=== PATIENT | male | born 1985 | race Caucasian/White ===

== ENCOUNTER 2017-12-05 16:16 | Emergency (ER) | payer OTHER ==
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
[2017-12-05 16:27] VITALS: BP 131/41; PULSE 77; BMI 24.0
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
[2017-12-05] MEDS ORDERED: ACETAMINOPHEN 500 MG TABLET (FP) PO ONE (17:26)
[2017-12-05] MEDS ORDERED: ACETAMINOPHEN 500 MG TABLET (FP) ONE (17:28)
[2017-12-05 19:48] VITALS: TEMP 98.9
== END 2017-12-05 19:51 | disposition home or self-care (01) ==
LOC: JERFT 16:16
DX: G44.319 Acute post-traumatic headache, not intractable (principal); V43.52XA Car driver injured in collision with other type car in traffic accident, initial encounter; Y92.488 Other paved roadways as the place of occurrence of the external cause; Y93.89 Activity, other specified; Y99.8 Other external cause status
CPT/HCPCS: 70450-TC; 99281-25

== ENCOUNTER 2018-02-14 04:01 | Emergency (ER) | payer OTHER ==
[2018-02-14 04:29] VITALS: BP 115/64; PULSE 74; TEMP 97.9; BMI 25.9
--- NOTE | 2018-02-14 05:01 | PDOC ---
History of Present Illness - General Chief Complaint: Back Pain Stated Complaint: MUSCLE SPASMS Time Seen by Provider: 02/14/18 04:33 History Source: Patient Exam Limitations: No Limitations - History of Present Illness Initial Comments: This is a 32 YOM with unremarkable PMH who p/w diffuse back pain and muscle spasms from the bottom of his neck to the backs of his calves. He notes that this was present when he awakened from a nap about 7 hours ago and has been a constant 8/10 spasm-like pain since that time. He has not taken any medications for the pain. He recalls one prior episode of similar pain for which he was seen here at [facility] about 4 years ago and was given a shot of pain medication with significant relief, but a cause for the pain was never determined. He denies any headache, vision change, chest pain, SOB, abdominal pain, nausea, vomiting, diarrhea, constipation, numbness, tingling, weakness, urinary or bowel incontinence or retention, saddle anesthesia, difficulty balancing, or other symptoms. The patient believes that he is feeling this way because he ate two honey snacks which are aphrodisiacs and he is only supposed to eat one per day. Past History - Past Medical History Allergies/Adverse Reactions: Allergies Allergy/AdvReac Type Severity Reaction Status Date / Time Iodinated Contrast- Oral and Allergy Mild Itching Verified 02/15/18 03:02 IV Dye CONTRAST Allergy Mild Itching Uncoded 02/15/18 03:02 Home Medications: Ambulatory Orders Methocarbamol [Robaxin -] 500 mg PO TID #21 tablet 02/14/18 COPD: No - Immunization History Immunization Up to Date: Yes - Suicide/Smoking/Psychosocial Hx Smoking Status: Yes Smoking History: Current every day smoker Have you smoked in the past 12 months: Yes Number of Cigarettes Smoked Daily: 10 Information on smoking cessation initiated: No 'Breaking Loose' booklet given: 08/19/17 Hx Alcohol Use: Yes Drug/Substance Use Hx: Yes Substance Use Type: None Review of Systems - Review of Systems Able to Perform ROS?: Yes Constitutional: No: Chills, Fever, Unexplained wgt Loss HEENTM: No: Nose Congestion, Throat Pain Respiratory: No: Cough, Shortness of Breath Cardiac (ROS): No: Chest Pain, Palpitations ABD/GI: No: Constipated, Diarrhea, Nausea, Vomiting : No: Burning, Dysuria Musculoskeletal: Yes: Back Pain (diffuse spasms and pain), Neck Pain (diffuse spasms and pain) Integumentary: No: Bruising, Rash Neurological: No: Headache, Numbness, Tingling, Weakness, Dizziness Endocrine: No: Unexplained Weight Gain, Unexplained Weight Loss *Physical Exam - Vital Signs Last Vital Signs Temp Pulse Resp BP Pulse Ox 97.9 F 74 18 115/64 100 02/14/18 04:26 02/14/18 04:26 02/14/18 04:26 02/14/18 04:02/14/18 04:26 - Physical Exam General Appearance: Yes: Nourished, Appropriately Dressed, Other (nontoxic and well appearing adult male who is answering questions appropriately, accompanied by significant other at bedside). No: Apparent Distress HEENT: positive: EOMI, YANET, Normal Voice, Hearing Grossly Normal. negative: Scleral Icterus (R), Scleral Icterus (L), Nasal Congestion Neck: positive: Tender (minimal tenderness to paraspinous muscles to posterior inferior neck, no midline ttp or stepoff or deformity), Trachea midline, Supple. negative: Rigid Respiratory/Chest: positive: Lungs Clear, Normal Breath Sounds. negative: Respiratory Distress, Crackles, Rhonchi, Stridor, Wheezing Cardiovascular: positive: Regular Rhythm, Regular Rate, S1, S2. negative: Edema , JVD, Murmur Gastrointestinal/Abdominal: positive: Normal Bowel Sounds, Soft. negative: Tender, Organomegaly, Pulsatile Mass, Guarding Musculoskeletal: positive: Normal Inspection, Muscle Spasm, Other (no midline ttp or stepoff or deformity). negative: Decreased Range of Motion, Vertebral Tenderness Extremity: positive: Normal Capillary Refill, Normal Inspection, Normal Range of Motion. negative: Tender, Cyanosis Integumentary: positive: Normal Color, Dry, Warm. negative: Erythema, Rash, Bruising Neurologic: positive: equipment planner II-XII NML intact, Fully Oriented, Alert, Normal Mood/ Affect, Normal Response, Motor Strength 5/5, Finger to Nose (normal), Other ( normal gait, no ataxia). negative: Facial Droop, Numbness, Sensory Deficit, Confused, Disoriented ED Treatment Course - LABORATORY CBC & Chemistry Diagram: 02/14/18 05:00 02/14/18 05:00 Medical Decision Making - Medical Decision Making 32 YOM patient p/w diffuse neck, back, and leg pain. No new red flag symptoms (see HPI). Initial Vital Signs Temp Pulse Resp BP Pulse Ox 97.9 F 74 18 115/64 100 02/14/18 04:26 02/14/18 04:26 02/14/18 04:26 02/14/18 04:26 02/14/18 04:26 Exam: diffuse mild tenderness to palpation along medial trapezius and latissimus dorsi from inferior posterior neck to sacrum, normal neuro exam, able to ambulate unassisted without distress. DDX IBNLT: muscle spasm, DDD, DJD, osteophyte, compression fxr, other vertebral or spinous process fxr; much LL malignancy, spinal epidural abscess, epidural hematoma, meningitis, or other more concerning etiology. W/U ordered: CBCD CMP Mg Phos CPK TX ordered: NS bolus; Toradol Robaxin to be given after labs. Reassessment: Patient with pain much improved after Toradol and Robaxin, repeat exam benign. The patient has gotten significant relief of symptoms with ED medications. They are appropriate for discharge with close outpatient follow up. The patient is comfortable with this plan and will follow up with their PCP in 1 -3 days. They are counseled on importance of proactive pain management. E-Rx for Robaxin sent to patient's pharmacy. Return precautions are discussed and they will come back to the ER if necessary. *DC/Admit/Observation/Transfer Diagnosis at time of Disposition: Muscle spasm Back pain Qualifiers: Back pain location: back pain in unspecified location Chronicity: unspecified Back pain laterality: bilateral Qualified Code(s): M54.9 - Dorsalgia, unspecified - Discharge Dispostion Disposition: HOME Condition at time of disposition: Stable Decision to Admit order: No - Prescriptions Prescriptions: Methocarbamol [Robaxin -] 500 mg PO TID #21 tablet - Referrals - Patient Instructions Additional Instructions: You were seen in the ER for neck and back pain. We checked laboratories on your blood and these were normal. We gave you IV Toradol and a dose of Robaxin muscle relaxer which helped with your pain. Please follow up with your regular PCP doctor in 1-3 days. Call their clinic as soon as possible, tell them you were seen in the ER for back pain, and tell them you need an appointment. superintendent schools your prescription for Robaxin at your pharmacy and take this if you need it according to the instructions of the bottle. If you have any new or worsening symptoms please come back to the ER at any time (24 hours a day), especially for fever, new numbness new tingling new weakness, new urinary or bowel incontinence or retention, or other new symptoms. If you are having severe or life threatening symptoms, or symptoms that make it unsafe to drive or have someone drive you, please call 911. - Post Discharge Activity
[2018-02-14] MEDS ORDERED: SODIUM CHLORIDE 0.9% 500 ML INFUS.BAG IV ONE (05:03)
[2018-02-14 05:27] LABS: BASO % 0.3 % (0-2.0); EOS % 1.5 % (0-4.5); HEMOGLOBIN 14.9 GM/dL (11.7-16.9); LYMPH % 29.8 % (8-40); MCH 32.9 pg (25.7-33.7); MCHC 34.6 g/dl (32.0-35.9); MEAN CELL VOLUME 95.1 fl (80-96); MONO % 9.4 % (3.8-10.2); PLATELET COUNT 226 K/MM3 (134-434); RBC 4.53 M/mm3 (4.00-5.60); RDW 13.2 % (11.9-15.9); WHITE BLOOD COUNT 6.3 K/mm3 (4.0-10.0)
[2018-02-14 05:49] LABS: ALBUMIN 3.8 g/dl (3.4-5.0); ALK PHOS 70 U/L (45-117); ANION GAP 4 (8-16); BILIRUBIN,TOTAL 0.3 mg/dL (0.2-1.0); BLOOD UREA NITROGEN 15 mg/dL (7-18); CALCIUM 8.8 mg/dL (8.5-10.1); CHLORIDE 110 mmol/L (98-107); CO2 27 mmol/L (21-32); CREATININE 0.7 mg/dL (0.7-1.3); GLUCOSE,RANDOM 98 mg/dL (74-106); MAGNESIUM 2.2 mg/dL (1.8-2.4); PHOSPHOROUS 3.9 mg/dL (2.5-4.9); POTASSIUM 4.1 mmol/L (3.5-5.1); SGOT/AST 17 U/L (15-37); SGPT/ALT 26 U/L (12-78); SODIUM 141 mmol/L (136-145); TOT PROT 6.4 g/dl (6.4-8.2)
--- NOTE | 2018-02-14 06:07 | PDOC ---
Attending Attestation - Resident Resident Name: Ana Escalera - ED Attending Attestation I have performed the following: I have examined & evaluated the patient, The case was reviewed & discussed with the resident, I agree w/resident's findings & plan, Exceptions are as noted <Goran Kohler - Last Filed: 02/14/18 06:07> - HPI HPI: 02/14/18 06:11 The patient is a 32 year old male with no significant past medical history who presents with diffuse back pain and muscle spasms for 7 hours. The patient reports that his symptoms began after he woke up from a nap yesterday. He describes is pain as constant and 8/10 in severity. He did not try to treat his symptoms at home. He denies any additional symptoms at this time. - Physicial Exam PE: 02/14/18 06:11 GENERAL: Well-appearing, well-nourished. No apparent distress. HEENT: Normocephalic, atraumatic. PERRL, EOM intact. CARDIOVASCULAR: Normal S1, S2. Regular rate and rhythm. PULMONARY: Clear to auscultation bilaterally. ABDOMEN: Soft, non-distended, non-tender. EXTREMITIES: Normal ROM in all four extremities. No gross deformities. SKIN: Warm, dry. No rash NEUROLOGICAL: No focal neurological deficits. - Medical Decision Making 02/14/18 06:11 Documentation prepared by Phi Foy, acting as medical record clerk for Goran Kohler DO. <Phi Foy - Last Filed: 02/14/18 06:11>
[2018-02-14] MEDS ORDERED: METHOCARBAMOL 500 MG TABLET PO ONE (06:09)
[2018-02-14] MEDS ORDERED: KETOROLAC TROMETHAMINE 30 MG/1 ML VIAL IVPUSH ONE (06:09)
[2018-02-14] MEDS ORDERED: METHOCARBAMOL 500 MG TABLET ONE (06:11)
[2018-02-14] MEDS ORDERED: KETOROLAC TROMETHAMINE 30 MG/1 ML VIAL ONE (06:11)
== END 2018-02-14 06:28 | disposition home or self-care (01) ==
LOC: JER 04:01
PROC: 3E0333Z Introduction of Anti-inflammatory into Peripheral Vein, Percutaneous Approach (ICD-10-PCS; principal; 2018-02-14)
PROC: 3E0337Z Introduction of Electrolytic and Water Balance Substance into Peripheral Vein, Percutaneous Approach (ICD-10-PCS; 2018-02-14)
DX: M54.9 Dorsalgia, unspecified (principal); M62.830 Muscle spasm of back; F17.210 Nicotine dependence, cigarettes, uncomplicated
CPT/HCPCS: 36415; 80053; 82550; 83735; 84100; 85025; 99283-25

== ENCOUNTER 2018-02-15 02:36 | Emergency (ER) | payer OTHER ==
[2018-02-15 03:03] VITALS: BP 130/73; PULSE 78; TEMP 98.7; BMI 25.0
--- NOTE | 2018-02-15 03:05 | PDOC ---
History of Present Illness - General Chief Complaint: Pain Stated Complaint: MUSCLE SPASMS Time Seen by Provider: 02/15/18 03:05 Past History - Past Medical History Allergies/Adverse Reactions: Allergies Allergy/AdvReac Type Severity Reaction Status Date / Time Iodinated Contrast- Oral and Allergy Mild Itching Verified 02/15/18 03:02 IV Dye CONTRAST Allergy Mild Itching Uncoded 02/15/18 03:02 Home Medications: Ambulatory Orders Methocarbamol [Robaxin -] 500 mg PO TID #21 tablet 02/14/18 COPD: No - Immunization History Immunization Up to Date: Yes - Suicide/Smoking/Psychosocial Hx Smoking Status: Yes Smoking History: Never smoked Have you smoked in the past 12 months: No Number of Cigarettes Smoked Daily: 10 Information on smoking cessation initiated: No 'Breaking Loose' booklet given: 08/19/17 Hx Alcohol Use: No Drug/Substance Use Hx: No Substance Use Type: None *Physical Exam - Vital Signs Last Vital Signs Temp Pulse Resp BP Pulse Ox 98.7 F 78 20 130/73 100 02/15/18 03:02 02/15/18 03:02 02/15/18 03:02 02/15/18 03:02 02/15/18 03:02 *DC/Admit/Observation/Transfer - Referrals Referrals: Bob Rosales MD [Primary Care Provider] - - Patient Instructions - Post Discharge Activity
--- NOTE | 2018-02-15 03:12 | PDOC ---
History of Present Illness - General Chief Complaint: Pain Stated Complaint: MUSCLE SPASMS Time Seen by Provider: 02/15/18 03:05 History Source: Patient Exam Limitations: No Limitations - History of Present Illness Initial Comments: This is a 32 YOM with h/o occasional back pain/spasms who returns to the ED with diffuse back pain and muscle spasms from the bottom of his neck to the back of his calves. He was seen here in the ED last night for the same symptoms , had laboratory work done (specifically CPK and basic labs) to rule out possibility of more serious causes, and these were normal. He was then given fluids and IV Toradol with significant relief, and was discharged home with E- Rx sent for Robaxin TID. He took the Robaxin three times during the day, and also took an Epsom salt bath, but his pain slowly returned and it became severe enough to being him back to the ED tonight. He otherwise has had no new symptoms. He has a primary care provider with whom he can follow up with tomorrow (states they take walk-ins). Past History - Past Medical History Allergies/Adverse Reactions: Allergies Allergy/AdvReac Type Severity Reaction Status Date / Time Iodinated Contrast- Oral and Allergy Mild Itching Verified 02/15/18 03:02 IV Dye CONTRAST Allergy Mild Itching Uncoded 02/15/18 03:02 Home Medications: Ambulatory Orders Methocarbamol [Robaxin -] 500 mg PO TID #21 tablet 02/14/18 COPD: No - Immunization History Immunization Up to Date: Yes - Suicide/Smoking/Psychosocial Hx Smoking Status: Yes Smoking History: Never smoked Have you smoked in the past 12 months: No Number of Cigarettes Smoked Daily: 10 Information on smoking cessation initiated: No 'Breaking Loose' booklet given: 08/19/17 Hx Alcohol Use: No Drug/Substance Use Hx: No Substance Use Type: None Review of Systems - Review of Systems Able to Perform ROS?: Yes Constitutional: No: Chills, Fever, Unexplained wgt Loss HEENTM: No: Nose Congestion, Throat Pain Respiratory: No: Cough, Shortness of Breath Cardiac (ROS): No: Chest Pain, Palpitations ABD/GI: No: Constipated, Diarrhea, Nausea, Vomiting : No: Burning, Dysuria Musculoskeletal: Yes: Back Pain, Neck Pain, Other (calf pain) Integumentary: No: Bruising, Rash Neurological: No: Headache, Numbness, Tingling, Weakness, Dizziness Endocrine: No: Unexplained Weight Gain, Unexplained Weight Loss *Physical Exam - Vital Signs Last Vital Signs Temp Pulse Resp BP Pulse Ox 98.7 F 78 20 130/73 100 02/15/18 03:02 02/15/18 03:02 02/15/18 03:02 02/15/18 03:02 02/15/18 03:02 - Physical Exam General Appearance: Yes: Nourished, Appropriately Dressed, Mild Distress, Other (alert and oriented adult male, appears mildly uncomfortable, answering questions appropriately, full ROM). No: Apparent Distress HEENT: positive: EOMI, Normal Voice, Hearing Grossly Normal. negative: Scleral Icterus (R), Scleral Icterus (L), Nasal Congestion Neck: positive: Trachea midline, Supple, Tender lateral (with mild spasm). negative: Tender, Rigid, Tender midline Respiratory/Chest: positive: Lungs Clear, Normal Breath Sounds. negative: Respiratory Distress, Crackles, Rhonchi, Stridor, Wheezing Cardiovascular: positive: Regular Rhythm, Regular Rate. negative: Murmur Gastrointestinal/Abdominal: positive: Normal Bowel Sounds, Flat, Soft. negative : Tender, Organomegaly, Pulsatile Mass, Guarding Musculoskeletal: positive: Normal Inspection, Other (mild bilateral paraspinous tenderness with mild muscle spasm). negative: Decreased Range of Motion, Vertebral Tenderness Extremity: positive: Normal Capillary Refill, Normal Inspection, Normal Range of Motion. negative: Tender, Cyanosis Integumentary: positive: Normal Color, Dry, Warm. negative: Erythema, Rash, Bruising Neurologic: positive: hand scudder II-XII NML intact (grossly), Fully Oriented, Alert, Normal Mood/Affect, Normal Response, Motor Strength 5/5. negative: Facial Droop , Numbness, Sensory Deficit, Confused, Disoriented Medical Decision Making - Medical Decision Making Patient with h/o with recurrent back pain p/w acute exacerbation of same recurrent back pain with muscle spasms. Initial Vital Signs Temp Pulse Resp BP Pulse Ox 98.7 F 78 20 130/73 100 02/15/18 03:02 02/15/18 03:02 02/15/18 03:02 02/15/18 03:02 02/15/18 03:02 Exam: Appears a bit uncomfortable, diffuse mild paraspinous back pain with muscle spasms DDX IBNLT: DDD, DJD, osteophyte, compression fxr, other vertebral or spinous process fxr; much LL malignancy, spinal epidural abscess, epidural hematoma, meningitis, or other more concerning etiology. W/U ordered: None TX ordered: 60 mg IM Toradol Reassessment: States pain much improved, examination is benign. The patient has gotten significant relief of symptoms with ED medications. They are appropriate for discharge with close outpatient follow up. The patient is comfortable with this plan and will follow up with their PCP tomorrow at their walk-in clinic. He states that he will follow up tomorrow whether or not he feels better in the morning. Return precautions are discussed and they will come back to the ER if necessary. *DC/Admit/Observation/Transfer Diagnosis at time of Disposition: Muscle spasm Back pain Qualifiers: Back pain location: back pain in unspecified location Chronicity: unspecified Back pain laterality: bilateral Qualified Code(s): M54.9 - Dorsalgia, unspecified - Discharge Dispostion Disposition: HOME Condition at time of disposition: Stable Admit: No - Referrals Referrals: Bob Rosales MD [Primary Care Provider] - - Patient Instructions Additional Instructions: You were seen in the ER for back pain. We gave you an injection of Toradol which helped with your pain. Please follow up with your regular PCP doctor tomorrow at their walk-in clinic, whether or not you feel better in the morning. Continue taking the Robaxin as prescribed, and also try Motrin and Tylenol if you need additional pain control. If you have any new or worsening symptoms please come back to the ER at any time (24 hours a day), especially for fever, new numbness new tingling new weakness, new urinary or bowel incontinence or retention, or other new symptoms. If you are having severe or life threatening symptoms, or symptoms that make it unsafe to drive or have someone drive you, please call 911. - Post Discharge Activity
[2018-02-15] MEDS ORDERED: KETOROLAC TROMETHAMINE 60 MG/2 ML VIAL IM ONE (03:14)
--- NOTE | 2018-02-15 03:14 | PDOC ---
Attending Attestation - HPI HPI: 02/15/18 03:26 The patient is a 32 year old male with no significant PMH who presents to the ED with worsening diffuse back pain and muscle spasms beginning approximately yesterday. He describes his back pain as a constant, diffuse, spasm-like sensation, 8/10 in severity. The patient states he was seen here yesterday and discharged after Robaxin prescription. He returns today after taking the medication 3 times and epsom salt with minimal relief, as well as missing his walk-in for PCP follow up. The patient denies taking Tylenol or Motrin. Allergies: Iodinated contrast, Oral & IV. PCP: Dr. Bob Rosales <Rip Arreaga - Last Filed: 02/15/18 03:26> - Resident Resident Name: Ana Escalera - Physicial Exam PE: 02/15/18 04:09 *Physical Exam General Appearance: Yes: Appropriately Dressed. No: Apparent Distress, Intoxicated HEENT: positive: EOMI, YANET, Normal ENT Inspection, Normal Voice, TMs Normal, Pharynx Normal. negative: Pale Conjunctivae, Photophobia, Scleral Icterus (R), Scleral Icterus (L) Neck: positive: Trachea midline, Normal Thyroid, Supple. negative: Tender, Rigid, Carotid bruit, Stridor, Lymphadenopathy (R), Lymphadenopathy (L), Thyromegaly Respiratory/Chest: positive: Lungs Clear, Normal Breath Sounds. negative: Chest Tender, Respiratory Distress, Accessory Muscle Use, Labored Respiration, RES, Crackles, Rales, Rhonchi, Stridor, Wheezing, Dullness Cardiovascular: positive: Regular Rhythm, Regular Rate, S1, S2. negative: Edema , JVD, Murmur, Bradycardia, Tachycardia Vascular Pulses: Dorsalis-Pedis (R): 2+, Doralis-Pedis (L): 2+ Gastrointestinal/Abdominal: positive: Normal Bowel Sounds, Flat, Soft. negative : Tender, Organomegaly, Pulsatile Mass, Increased Bowel Sounds, Decreased BS, Distended, Guarding, Rebound, Hernia, Hepatomegaly, Spleenomegaly Lymphatic: negative: Adenopathy, Tenderness Musculoskeletal: positive: Normal Inspection. negative: CVA Tenderness, Decreased Range of Motion Extremity: positive: Normal Capillary Refill, Normal Inspection, Normal Range of Motion, Pelvis Stable. negative: Tender, Pedal Edema, Swelling, Erythema Integumentary: positive: Normal Color, Dry, Warm. 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 negative: EOM Palsy, Facial Droop, Sensory Deficit - Medical Decision Making 02/15/18 04:09 Pt treated and released <Goran Kohler - Last Filed: 02/15/18 04:09>
[2018-02-15] MEDS ORDERED: KETOROLAC TROMETHAMINE 60 MG/2 ML VIAL ONE (03:23)
== END 2018-02-15 04:10 | disposition home or self-care (01) ==
LOC: JER 02:36
PROC: 3E0233Z Introduction of Anti-inflammatory into Muscle, Percutaneous Approach (ICD-10-PCS; principal; 2018-02-15)
DX: M54.9 Dorsalgia, unspecified (principal); M62.830 Muscle spasm of back; Z87.891 Personal history of nicotine dependence
CPT/HCPCS: 96372; 99281-25

== ENCOUNTER 2018-05-13 22:48 | Emergency (ER) | payer OTHER ==
[2018-05-13 23:11] VITALS: BP 129/64; PULSE 88; TEMP 99.9; BMI 25.8
[2018-05-14] MEDS ORDERED: ACETAMINOPHEN 500 MG TABLET (FP) PO ONE (01:03)
--- NOTE | 2018-05-14 01:05 | PDOC ---
Attending Attestation - HPI HPI: 05/14/18 01:44 The patient is a 32 year old male with no significant medical history presents to the emergency department with fever. The patient presents with subjective fever accompanied with malaise, cough and body ache. Denies sick contact. Denies nausea and vomiting. Allergies: contrast and Iodinated contrast. Social history: None reported. Surgical history: None reported PCP: Bob Rosales MD <Monica Melendez - Last Filed: 05/14/18 01:44> - Resident Resident Name: PuraAndrew - ED Attending Attestation I have performed the following: I have examined & evaluated the patient, The case was reviewed & discussed with the resident, I agree w/resident's findings & plan, Exceptions are as noted - HPI HPI: 05/14/18 01:03 Pt c/o subjective fever, malaise and body aches. pt denies sick contacts - Physicial Exam PE: 05/14/18 01:03 *Physical Exam General Appearance: Yes: Appropriately Dressed. No: Apparent Distress, Intoxicated HEENT: positive: EOMI, YANET, Normal ENT Inspection, Normal Voice, TMs Normal, Pharynx Normal. negative: Pale Conjunctivae, Photophobia, Scleral Icterus (R), Scleral Icterus (L) Neck: positive: Trachea midline, Normal Thyroid, Supple. negative: Tender, Rigid, Carotid bruit, Stridor, Lymphadenopathy (R), Lymphadenopathy (L), Thyromegaly Respiratory/Chest: positive: Lungs Clear, Normal Breath Sounds. negative: Chest Tender, Respiratory Distress, Accessory Muscle Use, Labored Respiration, RES, Crackles, Rales, Rhonchi, Stridor, Wheezing, Dullness Cardiovascular: positive: Regular Rhythm, Regular Rate, S1, S2. negative: Edema , JVD, Murmur, Bradycardia, Tachycardia Vascular Pulses: Dorsalis-Pedis (R): 2+, Doralis-Pedis (L): 2+ Gastrointestinal/Abdominal: positive: Normal Bowel Sounds, Flat, Soft. negative : Tender, Organomegaly, Pulsatile Mass, Increased Bowel Sounds, Decreased BS, Distended, Guarding, Rebound, Hernia, Hepatomegaly, Spleenomegaly Lymphatic: negative: Adenopathy, Tenderness Musculoskeletal: positive: Normal Inspection. negative: CVA Tenderness, Decreased Range of Motion Extremity: positive: Normal Capillary Refill, Normal Inspection, Normal Range of Motion, Pelvis Stable. negative: Tender, Pedal Edema, Swelling, Erythema Integumentary: positive: Normal Color, Dry, Warm. 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 negative: EOM Palsy, Facial Droop, Sensory Deficit - Medical Decision Making 05/14/18 19:47 Pt treated and released <Goran Kohler - Last Filed: 05/14/18 19:47>
--- NOTE | 2018-05-14 01:33 | PDOC ---
History of Present Illness - General Chief Complaint: Cold Symptoms Stated Complaint: FEVER Time Seen by Provider: 05/14/18 00:56 History Source: Patient Exam Limitations: No Limitations - History of Present Illness Initial Comments: 05/14/18 01:25 Patient is a 32M with no significant medical history here today complaining of 1 day of fever, cough, rhinorrhea and bodyaches. Denies sick contacts. Endorses chest pain and abdominal pain with coughing. Denies chest pain and abdominal pain without coughing. Denies nausea, vomiting. Past History - Past Medical History Allergies/Adverse Reactions: Allergies Allergy/AdvReac Type Severity Reaction Status Date / Time Iodinated Contrast- Oral and Allergy Mild Itching Verified 02/15/18 03:02 IV Dye CONTRAST Allergy Mild Itching Uncoded 02/15/18 03:02 Home Medications: Ambulatory Orders Methocarbamol [Robaxin -] 500 mg PO TID #21 tablet 02/14/18 Cancer: No Cardiac Disorders: No CVA: No COPD: No DVT: No Dementia: No - Immunization History Immunization Up to Date: Yes - Suicide/Smoking/Psychosocial Hx Smoking Status: Yes Smoking History: Never smoked Have you smoked in the past 12 months: No Number of Cigarettes Smoked Daily: 10 Information on smoking cessation initiated: No 'Breaking Loose' booklet given: 08/19/17 Hx Alcohol Use: No Drug/Substance Use Hx: No Substance Use Type: None, Alcohol Review of Systems - Review of Systems Comments:: 05/14/18 01:36 GENERAL/CONSTITUTIONAL: +Fever +chills. No weakness. HEAD, EYES, EARS, NOSE AND THROAT: No change in vision. No ear pain or discharge. No sore throat. CARDIOVASCULAR: + chest pain. No shortness of breath RESPIRATORY: +cough. No wheezing, or hemoptysis. GASTROINTESTINAL: No nausea, vomiting, diarrhea or constipation. GENITOURINARY: No dysuria, frequency, or change in urination. MUSCULOSKELETAL: +bodyaches, no neck pain SKIN: No rash NEUROLOGIC: +headache. No vertigo, loss of consciousness, or change in strength/ sensation. ENDOCRINE: No increased thirst. No abnormal weight change HEMATOLOGIC/LYMPHATIC: No anemia, easy bleeding, or history of blood clots. ALLERGIC/IMMUNOLOGIC: No hives or skin allergy. *Physical Exam - Vital Signs Last Vital Signs Temp Pulse Resp BP Pulse Ox 99.9 F H 88 20 129/64 98 05/13/18 23:09 05/13/18 23:09 05/13/18 23:09 05/13/18 23:09 05/13/18 23:09 - Physical Exam Comments: 05/14/18 01:36 GENERAL: Awake, alert, and fully oriented, in no acute distress HEAD: No signs of trauma, normocephalic, atraumatic EYES: PERRLA, EOMI, sclera anicteric, conjunctiva clear ENT: Auricles normal inspection, hearing grossly normal, nares patent, oropharynx clear without exudates. Moist mucosa. Clear discharge from nares NECK: Normal ROM, supple, no lymphadenopathy, JVD, or masses LUNGS: No distress, speaks full sentences, clear to auscultation bilaterally HEART: Regular rate and rhythm, normal S1 and S2, no murmurs, rubs or gallops, peripheral pulses normal and equal bilaterally. ABDOMEN: Soft, nontender, normoactive bowel sounds. No guarding, no rebound. No masses EXTREMITIES: Normal inspection, Normal range of motion, no edema. No clubbing or cyanosis. NEUROLOGICAL: Cranial nerves II through XII grossly intact. Normal speech, normal gait, no focal sensorimotor deficits SKIN: Warm, Dry, normal turgor, no rashes or lesions noted. ED Treatment Course - RADIOLOGY Radiology Studies Ordered: Category Date Time Status CHEST PA & LAT [RAD] Stat Radiology 05/14/18 01:03 Ordered Medical Decision Making - Medical Decision Making 05/14/18 01:37 Patient is 32M here today with cold symptoms. Vital signs normal and stable. Will treat with tylenol. Will do chest x-ray to evaluate for unlikely pneumonia. Rapid flu sent. Will discharge. 05/14/18 02:16 Flu neg. 05/14/18 02:28 X-ray normal. Will discharge home. *DC/Admit/Observation/Transfer Diagnosis at time of Disposition: Upper respiratory infection - Discharge Dispostion Disposition: HOME Condition at time of disposition: Good Decision to Admit order: No - Referrals Referrals: Bob Rosales MD [Primary Care Provider] - - Patient Instructions Printed Discharge Instructions: DI for Viral Upper Respiratory Infection -- Adult Additional Instructions: Please return if you have any new worsening or concerning symptoms. Please follow up with your primary care physician this week. If you do not have a primary care physician, a referral has been included in your paperwork. - Post Discharge Activity
[2018-05-14] MEDS ORDERED: ACETAMINOPHEN 325 MG TABLET (FP) ONE (01:51)
== END 2018-05-14 03:07 | disposition home or self-care (01) ==
LOC: JER 22:48
DX: J06.9 Acute upper respiratory infection, unspecified (principal)
CPT/HCPCS: 71046-TC-FY; 87804; 99281-25

== ENCOUNTER 2018-06-25 13:57 | Emergency (ER) | payer OTHER ==
[2018-06-25 14:05] VITALS: BP 132/65; PULSE 84; TEMP 99; BMI 25.8
--- NOTE | 2018-06-25 14:35 | PDOC ---
Suture Removal/Wound Check HPI - History of Present Illness Chief Complaint: Suture/Staple Removal(Here) Stated Complaint: Suture/Staple Removal (other) Time Seen by Provider: 06/25/18 14:21 History Source: Yes: Patient Exam Limitations: Yes: No Limitations Treated at: Other ED (clinic in [place]) - Previous ED Treatment Type of procedure performed on last visit: Yes: Other (arthoscopic right shoulder surgery) - Onset of Previous Treatment Select one - (for the option above): Weeks (2 weeks) Comment:: 06/25/18 14:38 Patient with history of chronic right shoulder pain present for suture removal status post arthroscopic surgery done in the clinic in [place] 2 weeks ago to clean out right shoulder. Patient reported surgery was uncomplicated and has been feeling much improvement from chronic shoulder pain. Patient presented for suture removal. Denies redness to area, drainage to wound area or fever Past History - Past Medical History Allergies/Adverse Reactions: Allergies Allergy/AdvReac Type Severity Reaction Status Date / Time Iodinated Contrast- Oral and Allergy Mild Itching Verified 06/25/18 14:02 IV Dye CONTRAST Allergy Mild Itching Uncoded 06/25/18 14:02 Home Medications: Ambulatory Orders NK [No Known Home Medication] 06/25/18 Cancer: No Cardiac Disorders: No CVA: No COPD: No DVT: No Dementia: No Other medical history: denies. - Immunization History Immunization Up to Date: Yes - Suicide/Smoking/Psychosocial Hx Smoking Status: Yes Smoking History: Current every day smoker Have you smoked in the past 12 months: Yes Number of Cigarettes Smoked Daily: 5 Information on smoking cessation initiated: No 'Breaking Loose' booklet given: 08/19/17 Hx Alcohol Use: No Drug/Substance Use Hx: No Substance Use Type: None, Alcohol Suture Removal/Wound Check PE - Physical Exam Laceration/Wound Check Symptoms: reports: None, Improved (right shoulder pain) Current Severity Level: None Maximum Severity Level: None Pain Localization: None Location of Laceration/Wound: right: Shoulder (arthroscopic) Pain Radiation: None *Review of Systems - Review of Systems Able to Perform ROS?: Yes Constitutional: No: Symptoms Reported, Chills, Fever HEENTM: No: Symptoms Reported Respiratory: No: Symptoms reported Cardiac (ROS): No: Symptoms Reported ABD/GI: No: Symptoms Reported Musculoskeletal: Yes: See HPI, Other (right shoulder surgery) Integumentary: No: Bruising, Erythema, Pallor, Rash Neurological: No: Numbness, Paresthesia, Tingling, Weakness All Other Systems: Reviewed and Negative *Physical Exam - Vital Signs Last Vital Signs Temp Pulse Resp BP Pulse Ox 99 F 84 19 132/65 96 06/25/18 14:02 06/25/18 14:02 06/25/18 14:02 06/25/18 14:02 06/25/18 14:02 - Physical Exam Comments: 06/25/18 14:41 GENERAL: Well developed, well nourished. Awake and alert. No acute distress. MUSCULOSKELETAL : Normal range of motion of right shoulder. 5 out of 5 muscle strength of right shoulder, No bony deformities or pain EXTREMITIES: No cyanosis. No clubbing. No edema. No calf tenderness. SKIN: Well healed 2 areas of entry wound from laparoscopic surgery with one suture in each entry wound. one entry wound in front of the shoulder and another the back of shoulder . No erythema or drainage from wound site. No wound dehiscence. Warm and dry. Normal capillary refill. No rashes. No jaundice. NEUROLOGICAL: Alert, awake, appropriate. No motor deficits in the lower extremities. Gait is normal without ataxia. PSYCHIATRIC: Cooperative. Good eye contact. Appropriate mood and affect. General Appearance: Yes: Nourished, Appropriately Dressed. No: Apparent Distress Medical Decision Making - Medical Decision Making 06/25/18 14:44 Patient is status post arthroscopic right shoulder surgery 2 weeks ago presents for suture removal. No evidence of wound infection on exam. 2 sutures removed from to entry sites 1 in anterior shoulder and one in posterior shoulder. Patient have follow-up appointment in 4 days *DC/Admit/Observation/Transfer Diagnosis at time of Disposition: Encounter for removal of sutures - Discharge Dispostion Disposition: HOME Condition at time of disposition: Stable Decision to Admit order: No - Referrals Referrals: Bob Rosales MD [Primary Care Provider] - - Patient Instructions Printed Discharge Instructions: How to Care for a Surgical Wound - Post Discharge Activity
== END 2018-06-25 14:39 | disposition home or self-care (01) ==
LOC: JERFT 13:57
DX: Z48.817 Encounter for surgical aftercare following surgery on the skin and subcutaneous tissue (principal); Z48.02 Encounter for removal of sutures
CPT/HCPCS: 99281-25

== ENCOUNTER 2018-08-01 00:37 | Emergency (ER) | payer OTHER ==
[2018-08-01 00:44] VITALS: BP 131/63; PULSE 72; TEMP 98.3; BMI 25.8
[2018-08-01] MEDS ORDERED: KETOROLAC TROMETHAMINE 60 MG/2 ML VIAL IM ONE (01:17)
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
[2018-08-01] MEDS ORDERED: KETOROLAC TROMETHAMINE 60 MG/2 ML VIAL ONE (01:21)
== END 2018-08-01 01:40 | disposition home or self-care (01) ==
LOC: JER 00:37
PROC: 3E0233Z Introduction of Anti-inflammatory into Muscle, Percutaneous Approach (ICD-10-PCS; principal; 2018-08-01)
DX: M62.830 Muscle spasm of back (principal); M62.838 Other muscle spasm; V89.2XXS Person injured in unspecified motor-vehicle accident, traffic, sequela
CPT/HCPCS: 99282-25

== ENCOUNTER 2019-05-21 05:14 | Emergency (ER) | payer SELFPAY, OTHER | END 2019-05-21 06:01 | disposition home or self-care (01) | LOC: JER 05:14 | PROC: 3E0233Z Introduction of Anti-inflammatory into Muscle, Percutaneous Approach (ICD-10-PCS; principal; 2019-05-21) | DX: M62.830 Muscle spasm of back (principal); M54.6 Pain in thoracic spine ==

== ENCOUNTER 2019-08-24 17:51 | Emergency (ER) | payer SELFPAY ==
[2019-08-24 17:56] VITALS: BP 125/73; PULSE 80; BMI 25.8
== END 2019-08-24 18:43 | disposition left against medical advice (07) ==
LOC: JERFT 17:51
DX: Z53.21 Procedure and treatment not carried out due to patient leaving prior to being seen by health care provider (principal)
CPT/HCPCS: 99281-25

== ENCOUNTER 2019-08-30 12:32 | Emergency (ER) | payer OTHER ==
[2019-08-30 12:51] VITALS: BP 134/89; PULSE 63; TEMP 97.9; BMI 25.8
[2019-08-30] MEDS ORDERED: ACETAMINOPHEN 1000 MG/100 ML VIAL (NON FORMULARY) IVPB ONE (13:01)
[2019-08-30] MEDS ORDERED: SODIUM CHLORIDE 0.9% 500 ML INFUS.BAG IV ONE (13:01)
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
[2019-08-30] MEDS ORDERED: ACETAMINOPHEN INJECTION 100 ML IVPB ONE (13:06)
[2019-08-30 13:20] LABS: BASO % 0.3 % (0-2.0); EOS % 0.5 % (0-4.5); HEMATOCRIT 44.3 % (35.4-49); HEMOGLOBIN 15.1 GM/dL (11.7-16.9); LYMPH % 15.4 % (8-40); MCH 32.7 pg (25.7-33.7); MCHC 34.1 g/dl (32.0-35.9); MEAN CELL VOLUME 95.9 fl (80-96); MEAN PLT VOLUME 9.8 fl (7.5-11.1); MONO % 9.4 % (3.8-10.2); NEUT % 74.4 % (42.8-82.8); PLATELET COUNT 235 K/MM3 (134-434); RBC 4.62 M/mm3 (4.00-5.60); WHITE BLOOD COUNT 12.5 K/mm3 (4.0-10.0)
[2019-08-30 13:33] LABS: ALBUMIN 3.7 g/dl (3.4-5.0); BILIRUBIN,TOTAL 0.6 mg/dL (0.2-1); CALCIUM 8.9 mg/dL (8.5-10.1); CREATININE 0.8 mg/dL (0.55-1.3); TOT PROT 6.4 g/dl (6.4-8.2)
--- NOTE | 2019-08-30 15:32 | PDOC ---
Documentation entered by Barb Hale SCRIBE, acting as scribe for Luciana Benavides MD. Luciana Benavides MD: This documentation has been prepared by the Alexia raines Adrianna, SCRIBE, under my direction and personally reviewed by me in its entirety. I confirm that the documentation accurately reflects all work, treatment, procedures, and medical decision making performed by me. Attending Attestation - Resident Resident Name: BarcenasColeen dominguez - ED Attending Attestation I have performed the following: I have examined & evaluated the patient, The case was reviewed & discussed with the resident, I agree w/resident's findings & plan, Exceptions are as noted - HPI HPI: The patient is a 34 year old male, with a significant PMH of chronic right shoulder pain, muscle cramps, and recent b/l surgical jaw repair 2 days ago (at [place] 11/16 [facility]), who presents to the ED for evaluation of headache since earlier this morning. Patient reports headache gradually began and radiates from his jaw to his occiput. He describes the pain as sharp, throbbing , and a 8/10 in severity. He reports some relief with percocet. Denies fever, chills, chest pain, SOB, nausea, vomit, abdominal pain, constipation, diarrhea, dysuria, hematuria, weakness, numbness, tingling, changes in vision, blurred vision. Allergies: Iodinated contrast Past surgical history: arthroscopic right shoulder surgery Social history: Current everyday smoker. PCP: Dr. Bob Rosales - Physicial Exam PE: GENERAL: Awake, alert, and fully oriented, in no acute distress HEAD: b/l L>R jaw edema EYES: PERRLA, EOMI, sclera anicteric, conjunctiva clear ENT: Oropharynx clear without exudates. Moist mucosa NECK: Normal ROM, supple, no lymphadenopathy, JVD, or masses LUNGS: Breath sounds equal, clear to auscultation bilaterally. No wheezes, and no crackles HEART: Regular rate and rhythm, normal S1 and S2, no murmurs, rubs or gallops ABDOMEN: Soft, nontender, normoactive bowel sounds. No guarding, no rebound. No masses EXTREMITIES: Normal range of motion, no edema. No erythema, or tenderness BACK: No midline spinal tenderness in cervical/thoracic/cords,lumbar region NEUROLOGICAL: Normal speech, cranial nerves intact, negative pronator drift, 5/ 5 strength in all 4 extremities, normal sensation to light touch in all 4 extremities, normal cerebellar exam, normal gait, normal tone SKIN: Warm, Dry, normal turgor, no rashes or lesions noted. - Medical Decision Making 08/30/19 15:31 34yo M with recent b/l jaw surgery presents to the ED with headache since this morning with pain radiating from b/l jaw No red flags, gradual onset martinez, neuro exam normal and at this time, pt reports martinez has resolved Given recent trauma, will obtain CTH to r/o bleed and reassess
== END 2019-08-30 17:52 | disposition home or self-care (01) ==
LOC: JER 12:32
PROC: 3E033NZ Introduction of Analgesics, Hypnotics, Sedatives into Peripheral Vein, Percutaneous Approach (ICD-10-PCS; principal; 2019-08-30)
DX: Z87.81 Personal history of (healed) traumatic fracture (principal); Y04.8XXD Assault by other bodily force, subsequent encounter; M25.511 Pain in right shoulder; G89.29 Other chronic pain; F17.210 Nicotine dependence, cigarettes, uncomplicated
CPT/HCPCS: 36415; 70450-TC; 80053; 85025; 96374; 99282-25; J0131

== ENCOUNTER 2019-12-22 11:29 | Emergency (ER) | payer OTHER ==
[2019-12-22 11:50] VITALS: TEMP 97.2; BMI 25.5
[2019-12-22] MEDS ORDERED: SODIUM CHLORIDE 1,000 ML IV STA (12:35)
--- NOTE | 2019-12-22 12:41 | PDOC ---
*Physical Exam - Vital Signs Last Vital Signs Temp Pulse Resp BP Pulse Ox 97.2 F L 92 H 18 162/73 97 12/22/19 11:45 12/22/19 11:45 12/22/19 11:45 12/22/19 11:45 12/22/19 11:45 Medical Decision Making - Medical Decision Making 12/22/19 12:42 The patient was seen and evaluated in conjunction with ANGEL Hannah under my direct supervision, ancillary studies were reviewed. I independently interviewed and evaluated the patient and I agree with the plan as outlined by [place]
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
[2019-12-22] MEDS ORDERED: AMOX TR/POT CLAV 875MG/125MG TABLETS (FP) PO ONE (13:22)
[2019-12-22 13:41] LABS: INR 1.05 (0.83-1.09); PROTHROMBIN TIME (PATIENT) 12.4 SEC (9.7-13.0)
[2019-12-22 13:44] LABS: ACTIVATED PTT 34.2 SECONDS (25.2-36.5)
[2019-12-22 13:54] LABS: BASO % 0.6 % (0-2.0); EOS % 0.3 % (0-4.5); HEMATOCRIT 45.4 % (35.4-49); HEMOGLOBIN 15.5 GM/dL (11.7-16.9); LYMPH % 18.8 % (8-40); MCH 32.7 pg (25.7-33.7); MCHC 34.2 g/dl (32.0-35.9); MEAN CELL VOLUME 95.6 fl (80-96); MEAN PLT VOLUME 8.8 fl (7.5-11.1); MONO % 10.2 % (3.8-10.2); NEUT % 70.1 % (42.8-82.8); PLATELET COUNT 263 K/MM3 (134-434); RBC 4.75 M/mm3 (4.00-5.60); RDW 13.1 % (11.9-15.9); WHITE BLOOD COUNT 7.5 K/mm3 (4.0-10.0)
[2019-12-22 14:01] LABS: ALBUMIN 4.2 g/dl (3.4-5.0); ALK PHOS 99 U/L (45-117); ANION GAP 7 MMOL/L (8-16); BILIRUBIN,TOTAL 0.7 mg/dL (0.2-1); BLOOD UREA NITROGEN 14.2 mg/dL (7-18); CALCIUM 8.8 mg/dL (8.5-10.1); CHLORIDE 107 mmol/L (98-107); CO2 26 mmol/L (21-32); CREATININE 0.8 mg/dL (0.55-1.3); GLUCOSE,RANDOM 99 mg/dL (74-106); MAGNESIUM 2.2 mg/dL (1.8-2.4); POTASSIUM 4.4 mmol/L (3.5-5.1); SGOT/AST 23 U/L (15-37); SGPT/ALT 24 U/L (13-61); SODIUM 140 mmol/L (136-145); TOT PROT 7.4 g/dl (6.4-8.2)
[2019-12-22] MEDS ORDERED: methylPREDNISolone NA SUCC 125 MG/2 ML VIAL IVPB ONE (14:25)
[2019-12-22] MEDS ORDERED: SODIUM CHLORIDE 0.9% 500 ML INFUS.BAG IV ONE (14:25)
[2019-12-22] MEDS ORDERED: methylPREDNISolone NA SUCC 125 MG/2 ML VIAL ONE (14:42)
[2019-12-22] MEDS ORDERED: AMOX TR/POT CLAV 875MG/125MG TABLETS (FP) ONE (15:07)
[2019-12-22 19:09] VITALS: BP 104/41; PULSE 99
--- NOTE | 2019-12-23 11:02 | EKG ---
Test Reason : Blood Pressure : / mmHG Vent. Rate : 087 BPM Atrial Rate : 087 BPM P-R Int : 130 ms QRS Dur : 094 ms QT Int : 350 ms P-R-T Axes : 065 077 055 degrees QTc Int : 421 ms NORMAL SINUS RHYTHM NORMAL ECG NO PREVIOUS ECGS AVAILABLE Confirmed by Pilo Barton MD ([id number]) on 12/23/2019 11:02:06 AM Referred By: Confirmed By:Pilo Barton MD
== END 2019-12-22 19:05 ==
LOC: JER 11:29
PROC: 3E0337Z Introduction of Electrolytic and Water Balance Substance into Peripheral Vein, Percutaneous Approach (ICD-10-PCS; principal; 2019-12-22)
PROC: 3E033GC Introduction of Other Therapeutic Substance into Peripheral Vein, Percutaneous Approach (ICD-10-PCS; 2019-12-22)
PROC: 3E0333Z Introduction of Anti-inflammatory into Peripheral Vein, Percutaneous Approach (ICD-10-PCS; 2019-12-22)
DX: R07.9 Chest pain, unspecified (principal); R55 Syncope and collapse; S01.112A Laceration without foreign body of left eyelid and periocular area, initial encounter; S05.12XA Contusion of eyeball and orbital tissues, left eye, initial encounter; S05.11XA Contusion of eyeball and orbital tissues, right eye, initial encounter; S00.81XA Abrasion of other part of head, initial encounter; W18.39XA Other fall on same level, initial encounter; Y93.89 Activity, other specified; Y92.480 Sidewalk as the place of occurrence of the external cause; Y99.8 Other external cause status; Z91.041 Radiographic dye allergy status
CPT/HCPCS: 36415; 70450-TC; 70486-TC; 71046-TC-FY; 71275-TC; 80053; 82550; 82553; 83735; 84484; 85025; 85379; 85610; 85730; 93005; 93010; 96361; 96374; 96375; 99285-25; J7030; Q9967

== ENCOUNTER 2020-10-28 17:36 | Emergency (ER) | payer OTHER ==
[2020-10-28 18:11] VITALS: BP 134/78; PULSE 68; TEMP 98; BMI 26.6
== END 2020-10-28 19:03 | disposition home or self-care (01) ==
LOC: FER 17:36
DX: S62.91XA Unspecified fracture of right hand, initial encounter for closed fracture (principal)
CPT/HCPCS: 73110-TC-RT-FY; 73130-TC-RT-FY; 99283-25

== ENCOUNTER 2020-11-10 17:56 | Emergency (ER) | payer OTHER ==
[2020-11-10] MEDS ORDERED: LIDOCAINE 5% TOPICAL PATCH TP ONE (18:02)
[2020-11-10] MEDS ORDERED: ACETAMINOPHEN 325 MG TABLET (FP) PO ONE (18:02)
[2020-11-10] MEDS ORDERED: CYCLOBENZAPRINE HCL 5 MG TABLET PO ONE (18:02)
[2020-11-10 18:08] VITALS: BP 103/60; PULSE 77; TEMP 98.6; BMI 27.3
[2020-11-10] MEDS ORDERED: LIDOCAINE 5% TOPICAL PATCH ONE (18:14)
[2020-11-10] MEDS ORDERED: CYCLOBENZAPRINE HCL 10 MG TABLET (FP) ONE (18:14)
[2020-11-10] MEDS ORDERED: ACETAMINOPHEN 325 MG TABLET (FP) ONE (18:14)
[2020-11-10] MEDS ORDERED: LIDOCAINE PATCH REMOVAL MC SCH (22:00)
== END 2020-11-10 19:04 | disposition home or self-care (01) ==
LOC: FER 17:56
DX: R07.89 Other chest pain (principal)
CPT/HCPCS: 71046-TC-FY; 99284-25

== ENCOUNTER 2020-12-28 21:33 | Emergency (ER) | payer OTHER ==
[2020-12-28 21:57] VITALS: BP 133/73; PULSE 81; TEMP 98.7; BMI 28.8
[2020-12-28] MEDS ORDERED: KETOROLAC TROMETHAMINE 30 MG/1 ML VIAL IM ONE (22:13)
[2020-12-28] MEDS ORDERED: KETOROLAC TROMETHAMINE 30 MG/1 ML VIAL ONE (22:34)
== END 2020-12-28 22:45 | disposition home or self-care (01) ==
LOC: JER 21:33
PROC: 3E0233Z Introduction of Anti-inflammatory into Muscle, Percutaneous Approach (ICD-10-PCS; principal; 2020-12-28)
DX: M62.838 Other muscle spasm (principal)
CPT/HCPCS: 99284-25

== ENCOUNTER 2021-04-09 11:33 | Emergency (ER) | payer OTHER ==
[2021-04-09 11:43] VITALS: BP 132/86; PULSE 88; TEMP 97.9; BMI 27.8
[2021-04-09] MEDS ORDERED: IBUPROFEN 400 MG TABLET (FP) PO ONE ×2 (11:45→11:47)
== END 2021-04-09 12:37 | disposition home or self-care (01) ==
LOC: FER 11:33
PROC: 2W3CX1Z Immobilization of Right Lower Arm using Splint (ICD-10-PCS; principal; 2021-04-09)
DX: S62.316A Displaced fracture of base of fifth metacarpal bone, right hand, initial encounter for closed fracture (principal)
CPT/HCPCS: 73130-TC-RT-FY; 99284-25

== ENCOUNTER 2021-04-23 10:56 | Emergency (ER) | payer OTHER ==
[2021-04-23 11:04] VITALS: BP 137/77; PULSE 81; TEMP 99.1; BMI 27.8
== END 2021-04-23 11:23 | disposition left against medical advice (07) ==
LOC: FER 10:56
DX: S01.91XA Laceration without foreign body of unspecified part of head, initial encounter (principal)
CPT/HCPCS: 99283-25

== ENCOUNTER 2021-04-23 11:50 | Emergency (ER) | payer OTHER ==
[2021-04-23 12:24] VITALS: BP 116/77; PULSE 77; TEMP 97.9; BMI 27.8
== END 2021-04-23 13:36 | disposition home or self-care (01) ==
LOC: JER 11:50
PROC: 0JQ10ZZ Repair Face Subcutaneous Tissue and Fascia, Open Approach (ICD-10-PCS; principal; 2021-04-23)
DX: S01.91XA Laceration without foreign body of unspecified part of head, initial encounter (principal)
CPT/HCPCS: 12011-25; 99284-25

== ENCOUNTER 2021-06-02 06:41 | Emergency (ER) | payer OTHER ==
[2021-06-02 07:06] VITALS: BP 104/72; PULSE 84; TEMP 98.2; BMI 27.6
[2021-06-02] MEDS ORDERED: IBUPROFEN 600 MG TABLET (FP) PO ONE ×2 (07:12→07:45)
== END 2021-06-02 09:31 | disposition home or self-care (01) ==
LOC: JER 06:41 → JERFT 06:41
PROC: 2W3CX1Z Immobilization of Right Lower Arm using Splint (ICD-10-PCS; principal; 2021-06-02)
DX: S62.334A Displaced fracture of neck of fourth metacarpal bone, right hand, initial encounter for closed fracture (principal); Y04.0XXA Assault by unarmed brawl or fight, initial encounter
CPT/HCPCS: 73130-TC-RT-FY; 99283-25

== ENCOUNTER 2021-07-04 15:39 | Emergency (ER) | payer OTHER ==
[2021-07-04 16:04] VITALS: BP 105/72; PULSE 72; TEMP 98.2; BMI 27.3
== END 2021-07-04 16:54 | disposition home or self-care (01) ==
LOC: JERFT 15:39
DX: Z46.89 Encounter for fitting and adjustment of other specified devices (principal)
CPT/HCPCS: 99281-25

== ENCOUNTER 2021-10-07 10:59 | Emergency (ER) | payer OTHER ==
[2021-10-07 11:08] VITALS: BP 124/64; PULSE 62; TEMP 99; BMI 26.7
[2021-10-07] MEDS ORDERED: KETOROLAC TROMETHAMINE 30 MG/1 ML VIAL IM ONE (11:11)
[2021-10-07] MEDS ORDERED: KETOROLAC TROMETHAMINE 30 MG/1 ML VIAL ONE (11:22)
== END 2021-10-07 11:28 | disposition home or self-care (01) ==
LOC: FER 10:59
PROC: 3E0233Z Introduction of Anti-inflammatory into Muscle, Percutaneous Approach (ICD-10-PCS; principal; 2021-10-07)
DX: M62.830 Muscle spasm of back (principal)
CPT/HCPCS: 99284-25

== ENCOUNTER 2021-10-10 10:27 | Emergency (ER) | payer OTHER ==
[2021-10-10 10:38] VITALS: BP 136/59; PULSE 76; TEMP 98; BMI 22.1
== END 2021-10-10 10:44 | disposition left against medical advice (07) ==
LOC: JER 10:27
DX: M79.10 Myalgia, unspecified site (principal)
CPT/HCPCS: 99281-25

== ENCOUNTER 2021-11-13 16:53 | Emergency (ER) | payer OTHER ==
[2021-11-13 17:19] VITALS: BP 122/76; PULSE 72; TEMP 98; BMI 24.7
== END 2021-11-13 17:50 | disposition home or self-care (01) ==
LOC: JERFT 16:53
DX: S69.91XA Unspecified injury of right wrist, hand and finger(s), initial encounter (principal); W19.XXXA Unspecified fall, initial encounter
CPT/HCPCS: 73110-TC-RT-FY; 73130-TC-RT-FY; 99283-25